=== PATIENT | female | born 1980 | race Caucasian/White ===

== ENCOUNTER → 2023-09-24 | Emergency (ER) | payer SELFPAY ==
[~2023-09-24] MED LIST: POTASSIUM 25 MEQ EFFERV TAB ONE
[2023-09-24 18:12] LABS: Absolute Lymphocytes (CBC) 1.1 K/uL (0.7-4.9); Hematocrit 33.2 % (36.0-45.0); Lymphocytes % 18.9 % (15.3-44.8); MCV 85.8 fL (80-100); MPV 7.7 fL (7.6-11.3); Platelets 320 thou/uL (152-406); RBC Red Blood Cell Count 3.87 M/uL (3.86-4.86)
[2023-09-24 18:16] LABS: Protime INR 1.31
[2023-09-24 19:03] LABS: ALT/SGPT 21 U/L (13-56); AST/SGOT 14 U/L (15-37); Albumin 3.9 g/dL (3.4-5.0); Alkaline Phosphatase 74 U/L (45-117); BUN Blood Urea Nitrogen 10 mg/dL (7-18); Bicarbonate 23 mEq/L (21-32); Bilirubin Direct 0.2 mg/dL (0-0.2); Bilirubin Indirect, Calculated 0.4 mg/dL (0.2-0.8); Bilirubin Total 0.6 mg/dL (0.2-1.0); Glomerular Filtration Rate 98 ml/min (=/>90); Glucose Level 98 mg/dL (74-106); Potassium 3.3 mEq/L (3.5-5.1); Protein, Total 8.9 g/dL (6.4-8.2); Sodium Level 134 mEq/L (136-145)
[2023-09-24 21:04] LABS: Specific Gravity 1.012 (1.005-1.030)
[2023-09-24 21:05] LABS: Barbiturates NEGATIVE (NEGATIVE); Benzodiazepines NEGATIVE (NEGATIVE); Cocaine NEGATIVE (NEGATIVE); METHAMPHETAM NEGATIVE (NEGATIVE); Methadone NEGATIVE (NEGATIVE); Opiates NEGATIVE (NEGATIVE); Phencyclidine NEGATIVE (NEGATIVE); THC Cannibis POSITIVE (NEGATIVE)
[2023-09-24 21:06] LABS: Specific Gravity 1.012 (1.005-1.030); Urine Bacteria None Seen /HPF (<20); Urine Bilirubin NEGATIVE (Negative); Urine Blood Negative (Negative); Urine Clarity Turbid (Clear); Urine Color Light-Yellow (Yellow); Urine Glucose NEGATIVE (Negative); Urine Mucus Slight /HPF (None Seen); Urine Protein NEGATIVE (Negative); Urine RBC None Seen /HPF (None Seen); Urine Urobilinogen Normal (Normal)
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
[2023-09-25 00:34] VITALS: BP 128/73; TEMP 97; O2SAT 100
== END ==
LOC: ER 17:20
DX: R45.851 Suicidal ideations (principal)
CPT/HCPCS: 36415; 80048; 80076; 80143; 80179; 80307; 81001; 81025; 82077; 85025; 85610; 85730; 99284